=== PATIENT | male | born 1965 | race Caucasian/White ===

== ENCOUNTER → 2018-01-22 | Day surgery (SDC) | payer OTHER ==
[2018-01-20 15:52] LABS: BASOPHILS # (AUTO) 0.1 (0.0-0.1); BASOPHILS % 0.9 % (0.0-1.0); EOSINOPHILS # (AUTO) 0.2 (0.0-0.4); EOSINOPHILS % 2.9 % (0.0-6.0); HEMATOCRIT 47.6 % (38.2-49.6); HEMOGLOBIN 16.3 g/dL (14.0-18.0); LYMPHOCYTES # (AUTO) 2.7 (1.0-3.2); MEAN CORPUSCULAR HEMOGLOBIN 34.2 pg (28-32); MEAN CORPUSCULAR HGB CONC 34.2 g/dL (31-35); MONOCYTES # (AUTO) 0.4 (0.2-0.8); MONOCYTES % 6.2 % (4.4-11.3); NEUTROPHILS # (AUTO) 2.4 (2.1-6.9); PLATELET COUNT 175 x10e3/uL (140-360); RED BLOOD COUNT 4.76 x10e6/uL (4.3-5.7); RED CELL DISTRIBUTION WIDTH 11.5 % (11.7-14.4)
[~2018-01-22] MED LIST: ACETAMINOPHEN/CODEINE 300MG - 30MG TAB ONE; BACITRACIN 50,000 UNIT VIAL ONE; BUPIVACAINE HCL 0.5% INJ 30 ML VIAL INJ ONE; CEFAZOLIN SOD 2 GM/D5W 50ML 50 ML IV ONE; DEXAMETHASONE SOD PHOS INJ 4 MG/ML VIAL ONE; FENTANYL CITRATE/PF 100MCG/2 ML INJ ONE; IOPAMIDOL 610MG/1ML 300 MG/ML VIAL IV ONE; KETOROLAC TROMETHAMINE 30 MG/ML VIAL ONE; LIDOCAINE HCL 1% LOCAL INJ 20 ML VIAL ONE; LIDOCAINE HCL 2% LOCAL INJ 5 ML SDV VIAL INJ ONE; MIDAZOLAM HCL 2 MG/2 ML VIAL ONE; ONDANSETRON HCL INJ 2 MG/ML VIAL ONE; PROPOFOL IV EMULSION 10 MG/ML 20 ML VIAL ONE; SEVOFLURANE INHAL SOLN 250 ML PEN BTL ONE
[2018-01-22 14:25] VITALS: BP 119/73
--- NOTE | 2018-01-22 15:01 | Operative Report ---
DATE OF PROCEDURE: January 22, 2018 PREOPERATIVE DIAGNOSIS: Left inguinal hernia. POSTOPERATIVE DIAGNOSIS: Left inguinal hernia. PROCEDURE PERFORMED: Repair of left inguinal hernia with mesh. MANAGER TECHNICAL TRAINING: None. ANESTHESIA: General. INDICATIONS AND FINDINGS: The patient is a 52-year-old male who presented with complaints of swelling in the left groin. Exam revealed a left inguinal hernia, also with a left hydrocele. At surgery patient was found to have a direct left inguinal hernia. TECHNIQUE: After adequate general anesthesia, patient in supine position, the left groin area and left scrotum were prepped and draped in sterile fashion with Betadine solution. A transverse incision was made in the left groin and carried down through the subcutaneous tissue and Lesly's fascia until the external oblique fascia was seen. This was opened in the direction of its fibers through the external ring. The ilioinguinal nerve was identified and preserved. Spermatic cord was dissected free from the floor of the inguinal canal, and there was found to be a direct hernia. There was no evidence of indirect hernia sac. The hydrocele did not extend up into the spermatic cord. The floor of the inguinal canal was opened up through the direct hernia defect into the preperitoneal space. A large Prolene mesh hernia system which had been soaked in antibiotic solution was placed through the hernia defect with the underlay patch opened up in the preperitoneal space. Onlay patch was laid over the floor of the inguinal canal with a keyhole opening created to allow exit of the spermatic cord. The onlay patch was sutured to shelving edge of inguinal ligament laterally and conjoined tendon medially. This was done with interrupted sutures of 0 Prolene. Care was taken not to entrap the genitofemoral or iliohypogastric nerves. Once the mesh was in place, the spermatic cord and ilioinguinal nerve were returned to their normal positions. The wound was then infiltrated with 1/2 percent Marcaine. The external oblique fascia was closed with a running suture of 2-0 Vicryl. Care was taken not to entrap the spermatic cord or ilioinguinal nerve. Lesly's fascia was closed with a running suture of 3-0 Vicryl. Skin was closed with a running subcuticular suture of 4-0 Vicryl. Dermabond was applied to the wound. The patient tolerated the procedure well. Estimated blood loss was less than 5 mL. There were no complications. All counts were correct. Patient remained under anesthesia for treatment of the hydrocele, which was done by Dr. Davis and is covered in his note. Job#: [id number] EV cc:CECILIA DAVIS MD
--- NOTE | 2018-01-23 23:03 | Operative Report ---
DATE OF PROCEDURE: January 22, 2018 PREOPERATIVE DIAGNOSES 1. Bilateral hydrocele. 2. Spermatocele. POSTOPERATIVE DIAGNOSES 1. Bilateral hydrocele. 2. Spermatocele. PROCEDURES PERFORMED 1. Excision of left spermatocele (entirely separate procedure for left spermatocele). 2. Bilateral hydrocele repair. ANESTHESIA: General. ESTIMATED BLOOD LOSS: Minimal. COMPLICATIONS: None. INDICATIONS FOR PROCEDURE: Mr. Way is a 52-year-old male with a very large hernia and hydrocele. He and I had a long discussion in regard to the alternatives, risks and benefits including doing nothing, repair. He voiced understanding of the options, the alternatives, the risks and the benefits, and he elected to proceed. PROCEDURE IN DETAIL: After informed consent was obtained, the patient was taken to the operative suite and he was placed supine on the operating table. He underwent general anesthesia by the anesthesia service, placed in the supine position and sterilely prepped and draped for scrotal and inguinal surgery. Dr. Kelly performed the hernia repair. Case was then turned over to hi. A midline incision was made to the scrotum. Of note, the left testicle was very large approximately 25 cm in size that was delivered partially extravaginally. The tunica was then sharply incised, represented section was taken and passed off table as specimen. Small spermatocele was noted on the left side. This was excised completely, base was fulgurated. The right hemiscrotum was then entered through the cremasters. There was minimal fluid on this side. Tunica was sewn to itself and replaced. On the left side, the tunica was sewn to itself and placed in an extravaginal pouch. Odanah was then placed near the inferior aspect of the incision. The cremaster was closed with a running chromic gut stitch. Skin was then closed with running chromic gut stitch. The wound was dressed. The patient was awakened from anesthesia and transported to the recovery room in excellent condition with no untoward effects noted. Job#: [id number] MARYAN
== END | disposition home or self-care (01) ==
LOC: OR 10:22
PROVIDERS: ATTEND Urology
DX: K40.90 Unilateral inguinal hernia, without obstruction or gangrene, not specified as recurrent (principal); N43.3 Hydrocele, unspecified; N43.41 Spermatocele of epididymis, single; Z01.810 Encounter for preprocedural cardiovascular examination; Z01.812 Encounter for preprocedural laboratory examination
CPT/HCPCS: 36415; 49505; 54840; 55041; 85025; 88304; 93005; C1781; J0690; J1100; J1885; J2001; J2250; J2405; J2704